=== PATIENT | female | born 1990 | race Two or more races ===

== ENCOUNTER 2016-10-03 15:04 | Emergency (ER) | payer OTHER ==
[2016-10-03 15:26] VITALS: RESP 16
[2016-10-03] MEDS ORDERED: ACETAMINOPHEN 500 MG TAB PO ONE (15:31)
--- NOTE | 2016-10-03 15:47 | UCPHY ---
H & P Time Seen by Provider: 10/03/16 15:15 Patient Type: Established HPI/ROS: 25-year-old female presents complaining of injuries sustained after hitting a tree while snowboarding at [place] today. She is unsure of exactly what happened but she knows her home a was cracked and she now has a small contusion to her left forehead as well as pain in her right wrist and right knee. Initially she had some chest pain. She also states that when she got to her car she felt dazed and sat there for about an hour. 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 Smoking Status: Never smoked Physical Exam: 25-year-old female alert and oriented no acute distress nontoxic appearance Left forehead with small hematoma Otherwise atraumatic normocephalic HEENT atraumatic normocephalic, extraocular muscles intact, anicteric No Youssef's, no raccoon's he no hemotympanum Oropharynx negative for erythema negative exudate, tolerating her own secretions Neck supple no meningismus Lungs clear to auscultation bilaterally Chest nontender to palpation Heart regular rate and rhythm without murmur rub or gallop Abdomen nondistended normoactive bowel sounds soft nontender Back no CVA tenderness, no step-offs, no spinal tenderness Extremities no cyanosis clubbing or edema Right wrist with no tenderness, no swelling no ecchymosis no deformity, pain with range of motion Pulses intact Right knee Diffusely tender to palpation, no instability no drawer sign no laxity Neuro alert and oriented, no focal deficits Constitutional: Initial Vital Signs Temperature (C) 36.7 C 10/03/16 15:21 Heart Rate 76 10/03/16 15:21 Respiratory Rate 16 10/03/16 15:21 Blood Pressure 146/91 H 10/03/16 15:21 O2 Sat (%) 97 10/03/16 15:21 O2 Delivery Mode Room Air Allergies/Adverse Reactions: shellfish derived Allergy (Severe, Verified 10/03/16 15:27) Anaphylaxis Home Medications: Medication Instructions Recorded NK [No Known Home Meds] 11/03/15 Medical Decision Making - Diagnostics Imaging: Right knee x-ray small effusion no fracture Right wrist x-ray negative Chest x-ray negative CT head negative ED Course/Re-evaluation: Patient seen and evaluated for right wrist right knee pain, left forehead hematoma after hitting a tree while skiing X-rays negative CT head negative Impression Right wrist sprain Right knee sprain Concussion Left forehead hematoma Plan Right wrist Velcro splint Right knee brace Concussion instructions Follow-up PCP Follow-up at Ortho if hand wrist and knee are not improving - Data Points Medications Given: Discontinued Medications Acetaminophen (Tylenol) 1,000 mg PO EDNOW ONE Stop: 10/03/16 15:32 Last Admin: 10/03/16 15:37 Dose: 1,000 mg Departure - Departure Disposition: Home, Routine, Self-Care Clinical Impression: Concussion, Right wrist sprain, Right knee sprain Condition: Good Instructions: Knee Sprain (ED), Concussion (ED), Wrist Sprain (ED) Referrals: [facility] [Provider Group] - As per Instructions Unknown,Unknown [Primary Care Provider] - As per Instructions Dionicio Mcknight MD [Medical Doctor] - As per Instructions - PQRS PQRS Measurement: na
[2016-10-03 16:39] VITALS: BP 148/88; PULSE 74; TEMP 97.9; O2SAT 96
== END 2016-10-03 16:51 | disposition home or self-care (01) ==
LOC: CED 15:04
DX: S06.0X9A Concussion with loss of consciousness of unspecified duration, initial encounter (principal); S63.501A Unspecified sprain of right wrist, initial encounter; S83.91XA Sprain of unspecified site of right knee, initial encounter; W22.8XXA Striking against or struck by other objects, initial encounter; Y93.23 Activity, snow (alpine) (downhill) skiing, snowboarding, sledding, tobogganing and snow tubing
CPT/HCPCS: 70450-PO; 71020-PO; 73110-PO; 73564-PO; 99214-PO; G0463-PO; L3908